=== PATIENT | male | born 1985 | race African-American/Black ===

== ENCOUNTER 2016-12-24 11:01 | Emergency (ER) | payer OTHER ==
[~2016-12-24] VITALS: Ht 175.3 cm; Wt 66.0 kg
[2016-12-24 11:29] VITALS: BP 120/89
== END 2016-12-24 14:26 | disposition home or self-care (01) ==
LOC: ER 14:15
DX: S09.90XA Unspecified injury of head, initial encounter (principal); R07.81 Pleurodynia; F17.200 Nicotine dependence, unspecified, uncomplicated; F12.10 Cannabis abuse, uncomplicated; Y09 Assault by unspecified means; Y99.9 Unspecified external cause status; Y92.89 Other specified places as the place of occurrence of the external cause
CPT/HCPCS: 70450; 70486; 71111; 72125; 99284

== ENCOUNTER 2017-01-21 11:47 | Emergency (ER) | payer OTHER ==
[~2017-01-21] VITALS: Ht 175.3 cm; Wt 68.0 kg
[2017-01-21 12:30] VITALS: BP 130/88
== END 2017-01-21 13:44 | disposition home or self-care (01) ==
LOC: ER 12:45
DX: L02.415 Cutaneous abscess of right lower limb (principal); F12.10 Cannabis abuse, uncomplicated; F17.200 Nicotine dependence, unspecified, uncomplicated
CPT/HCPCS: 99283

== ENCOUNTER 2018-05-09 17:18 | Emergency (ER) | payer OTHER ==
[~2018-05-09] VITALS: Ht 175.3 cm; Wt 63.0 kg
[2018-05-09] MEDS: PENICILLIN G BENZATHINE 2,400,000 UNITS/4ML SYR IM ONE (21:18)
[2018-05-09 21:42] VITALS: BP 120/80
== END 2018-05-09 21:44 | disposition home or self-care (01) ==
LOC: ER 20:54
DX: R59.0 Localized enlarged lymph nodes (principal); J45.909 Unspecified asthma, uncomplicated; F12.10 Cannabis abuse, uncomplicated; Z86.19 Personal history of other infectious and parasitic diseases
CPT/HCPCS: 86592; 86593; 86780; 96372; 99284; J0561

== ENCOUNTER 2018-05-16 19:26 | Emergency (ER) | payer OTHER ==
[~2018-05-16] VITALS: Ht 175.3 cm; Wt 65.7 kg
[2018-05-16 19:43] VITALS: BP 123/83
== END 2018-05-16 23:02 | disposition left against medical advice (07) ==
LOC: ER 19:26
DX: Z20.2 Contact with and (suspected) exposure to infections with a predominantly sexual mode of transmission (principal); F12.10 Cannabis abuse, uncomplicated; Z53.21 Procedure and treatment not carried out due to patient leaving prior to being seen by health care provider

== ENCOUNTER 2019-01-16 22:11 | Emergency (ER) | payer OTHER ==
[~2019-01-16] VITALS: Ht 175.3 cm; Wt 68.0 kg
[2019-01-17] MEDS ORDERED: PENICILLIN G BENZATHINE 2,400,000 UNITS/4ML SYR IM ONE (01:30)
[2019-01-17 02:44] VITALS: BP 142/82
== END 2019-01-17 02:52 | disposition home or self-care (01) ==
LOC: ER 23:46
DX: A53.9 Syphilis, unspecified (principal); F12.10 Cannabis abuse, uncomplicated
CPT/HCPCS: 96372; 99283; J0561

== ENCOUNTER 2019-01-23 18:17 | Emergency (ER) | payer OTHER ==
[~2019-01-23] VITALS: Ht 175.3 cm; Wt 75.0 kg
[2019-01-23] MEDS ORDERED: PENICILLIN G BENZATHINE 2,400,000 UNITS/4ML SYR IM ONE (23:30)
[2019-01-24 00:07] VITALS: BP 120/61
== END 2019-01-24 00:09 | disposition home or self-care (01) ==
LOC: ER 18:17
DX: A53.9 Syphilis, unspecified (principal); F12.10 Cannabis abuse, uncomplicated; F17.200 Nicotine dependence, unspecified, uncomplicated
CPT/HCPCS: 96372; 99283; J0561

== ENCOUNTER 2019-01-30 15:58 | Emergency (ER) | payer OTHER ==
[~2019-01-30] VITALS: Ht 175.3 cm; Wt 71.0 kg
[2019-01-30 16:07] VITALS: BP 134/80
[2019-01-30] MEDS ORDERED: PENICILLIN G BENZATHINE 2,400,000 UNITS/4ML SYR IM ONE (18:00)
== END 2019-01-30 18:26 | disposition home or self-care (01) ==
LOC: ER 16:20
DX: A53.9 Syphilis, unspecified (principal); F12.10 Cannabis abuse, uncomplicated
CPT/HCPCS: 96372; 99283; J0561

== ENCOUNTER 2020-03-05 23:45 | Emergency (ER) | payer OTHER ==
[~2020-03-05] VITALS: Ht 165.1 cm; Wt 68.0 kg
[2020-03-05 23:53] VITALS: BP 122/64
== END 2020-03-06 00:36 | disposition home or self-care (01) ==
LOC: ER 23:45
DX: B00.9 Herpesviral infection, unspecified (principal)
CPT/HCPCS: 99283